=== PATIENT | female | born 1965 | race Caucasian/White ===

== ENCOUNTER 2021-01-20 14:47 | Outpatient (CLI) | payer BC | END 2021-01-20 14:48 | disposition home or self-care (01) | LOC: CSHMRI 14:47 | PROVIDERS: ATTEND Orthopaedic Surgery | DX: S83.241A Other tear of medial meniscus, current injury, right knee, initial encounter (principal); Z98.890 Other specified postprocedural states; M23.021 Cystic meniscus, posterior horn of medial meniscus, right knee; M22.41 Chondromalacia patellae, right knee ==

== ENCOUNTER 2022-10-06 08:38 | Outpatient (CLI) | payer OTHER | END 2022-10-06 08:39 | disposition home or self-care (01) | LOC: CSHMAMMO 08:38 | PROVIDERS: ATTEND Family Medicine | DX: Z12.31 Encounter for screening mammogram for malignant neoplasm of breast (principal); Z80.3 Family history of malignant neoplasm of breast | CPT/HCPCS: 77063; 77067 ==

== ENCOUNTER 2023-11-24 15:22 | Outpatient (CLI) | payer OTHER | END 2023-11-24 15:23 | disposition home or self-care (01) | LOC: CSHMAMMO 15:22 | PROVIDERS: ATTEND Family Medicine | DX: Z12.31 Encounter for screening mammogram for malignant neoplasm of breast (principal); Z80.3 Family history of malignant neoplasm of breast | CPT/HCPCS: 77063; 77067 ==